=== PATIENT | female | born 1950 | race Caucasian/White ===

== ENCOUNTER → 2017-01-22 | Outpatient (CLI) | payer BC ==
[~2017-01-22] MED LIST: ALPR2TAB5 PO; ASPI-630 PO; BUSP10TA PO; ESTR1PAT10 TD; FLUT16SP2 NS; LOSA1TAB19 PO; OMEG500C PO; OMEP40CA5 PO; SOLI5TAB2 PO; VENL150C6 PO
--- NOTE | 2017-01-22 09:50 | KCIC ---
MRI right foot without contrast dated 01/22/2017. No comparison available. Clinical indication: Pain at base of metatarsals. Evaluate for avascular necrosis. Pain for 2 months. TECHNIQUE: T1 and FSE fat-saturated T2-weighted imaging performed in 3 planes to include the forefoot region. No contrast administered. FINDINGS: There is flattening of the articular surface of the second metatarsal head, particularly along its dorsal margin. There are secondary degenerative changes with small amount of increased T2 and low T1 signal in the subchondral marrow. Prominent marginal osteophyte off the dorsal surface of the second metatarsal head. No joint effusion. There is thinning and surface irregularity of the articular cartilage. Mild edema at the base of the second proximal phalanx. Mild degenerative change of the first MTP joint. Minimal degenerative change of the interphalangeal joints throughout. No additional areas of bone marrow edema There is T2 hyperintense signal within the soft tissues surrounding the second and third MTP joint. There is also some edema and fluid along the margins of the flexor tendons and extensor tendons. No apparent tendon disruption. The soft tissue structures are otherwise unremarkable. The Lisfranc ligament is intact. IMPRESSION: 1. Mild flattening of the second metatarsal head with signal abnormality at the subchondral marrow. Etiology is indeterminate but could be related to prior trauma or prior episodes of AVN. There are moderate secondary degenerative changes. 2. Mild edema within the soft tissue surrounding the second and third MTP joint with fluid along the flexor and extensor tendons. This could be related to reactive edema and/or tenosynovitis. 3. Additional degenerative changes as described above. Electronically signed by: Leonides Burgos MD (01/22/2017 9:46 AM) [id number]
== END | disposition home or self-care (01) ==
LOC: KCIC MRI 08:30
PROVIDERS: ATTEND Podiatrist
DX: M25.571 Pain in right ankle and joints of right foot (principal); R60.0 Localized edema
CPT/HCPCS: 73718

== ENCOUNTER → 2018-05-31 | Outpatient (CLI) | payer MEDICARE, BC ==
--- NOTE | 2018-05-31 18:16 | KCIC ---
Bilateral digital screening mammograms with 3-D tomosynthesis: Reason for examination: Routine screening. Comparison is made to previous studies dated 08/08/2013 and 08/16/2012. Bilateral mammograms in CC and oblique projections were obtained with 2-D imaging and 3-D tomosynthesis imaging on a Siemens Inspiration unit and reviewed on the workstation. Interpretation was made with the benefit of CAD. The skin and nipples show no abnormalities. No abnormal axillary lymph nodes are seen. The breast parenchyma shows scattered fatty and fibroglandular density. (Breast density: Category B.) There are multiple small subcentimeter nodular densities seen bilaterally which may represent small cystic or fibrocystic lesions. Recommend further evaluation with ultrasound. There are no suspicious calcifications or architectural distortion. Impression: Multiple small nodules bilaterally throughout both breasts. These may represent cysts or fibrocystic lesions but recommend further evaluation with ultrasound. BI-RADS Category 0: Incomplete: Need additional imaging evaluation. "Our facility is accredited by the [employer] Mammography [employer]." This patient's information has been entered into a reminder system for the patient to be notified with the results of her examination and a target date for the next mammogram. Electronically signed by: Joanna Cerrato MD (05/31/2018 6:13 PM) [id number]
== END | disposition home or self-care (01) ==
LOC: KCIC MAMMO 15:22
PROVIDERS: ATTEND Family Medicine
DX: Z12.31 Encounter for screening mammogram for malignant neoplasm of breast (principal); N63.10 Unspecified lump in the right breast, unspecified quadrant; N63.20 Unspecified lump in the left breast, unspecified quadrant
CPT/HCPCS: 77063; 77067

== ENCOUNTER → 2018-06-21 | Outpatient (CLI) | payer MEDICARE, BC ==
--- NOTE | 2018-06-21 12:26 | KCIC ---
MR of the right shoulder HISTORY: Right shoulder pain, several falls. TECHNIQUE: Routine multiplanar sequences are obtained. FINDINGS: The acromioclavicular joint is mildly degenerative. Diffuse rotator cuff tendinosis. Broad undersurface tearing of the supraspinatus and infraspinatus tendons, overall about 80-90% deep. There is a small through and through full-thickness component at the lateral supraspinatus tendon measuring less than 1 cm. Partial subscapularis tendon tear. Mild rotator cuff muscle atrophy. Mild subdeltoid bursal fluid. Small joint effusion. Tear of the posterosuperior labrum. Biceps tendon appears intact. Degenerative changes at the glenohumeral joint. No bone destruction or acute fracture. IMPRESSION: 1. Rotator cuff tendinosis. Broad deep partial-thickness undersurface tearing of the supraspinatus and infraspinatus tendon with a small full-thickness component laterally, and partial subscapularis tendon tear. 2. Posterosuperior labral tear. 3. Small joint effusion. Electronically signed by: Leonides Ramos MD (06/21/2018 12:23 PM) [email or web address]
== END | disposition home or self-care (01) ==
LOC: KCIC MRI 10:02
PROVIDERS: ATTEND Orthopaedic Surgery
DX: M75.101 Unspecified rotator cuff tear or rupture of right shoulder, not specified as traumatic (principal); M62.511 Muscle wasting and atrophy, not elsewhere classified, right shoulder; M19.011 Primary osteoarthritis, right shoulder; M25.411 Effusion, right shoulder
CPT/HCPCS: 73221

== ENCOUNTER → 2018-06-25 | Outpatient (CLI) | payer MEDICARE, BC ==
--- NOTE | 2018-06-25 09:13 | KCIC ---
Bilateral breast ultrasound: Reason for examination: Multiple small nodules on screening mammogram. Comparison is made to mammographic exam dated 05/31/2018. Bilateral whole breast ultrasound including evaluation of all 4 quadrants and the retroareolar and axillary regions of both breasts was performed. There are multiple small hypoechoic lesions throughout both breasts measuring up to 7.4 mm in size consistent with complicated cysts and fibrocystic lesions. No grossly suspicious lesions are seen. No abnormal appearing lymph nodes are seen in the axilla. IMPRESSION: Multiple small benign-appearing nodules throughout both breasts consistent with complicated cysts and fibrocystic lesions which are all subcentimeter in size. No grossly suspicious lesion seen. Recommend reevaluation with ultrasound in 3 months to verify stability. BI-RADS Category 3: Probably Benign. "Our facility is accredited by the [employer] Mammography [employer]." This patient's information has been entered into a reminder system for the patient to be notified with the results of her examination and a target date for the next mammogram. Electronically signed by: Joanna Cerrato MD (06/25/2018 9:10 AM) [email or web address]
== END | disposition home or self-care (01) ==
LOC: KCIC US 07:55
PROVIDERS: ATTEND Family Medicine
DX: R92.8 Other abnormal and inconclusive findings on diagnostic imaging of breast (principal)
CPT/HCPCS: 76641

== ENCOUNTER → 2018-07-11 | Outpatient (CLI) | payer MEDICARE, BC ==
--- NOTE | 2018-07-11 14:54 | KCIC ---
MRI Lumbar Spine without contrast History: Left sciatica, frequent falls, chronic bilateral hip pain Technique: Multiplanar, multi sequential noncontrast MR imaging was performed of the lumbar spine. Comparison: None Findings: There is some motion degradation. Lumbar vertebral body stature is maintained. There is grade 1 anterior spondylolisthesis L4-5. There is mild degenerative disc disease at L4-5, mild disc desiccation at more superior lumbar levels. There is very mild edema of the bilateral L4 and L5 pedicles extending to the facet articular processes likely reactive/degenerative in etiology. Conus terminates at T12-L1. L2-L3: Spinal canal and neural foramina are adequate. There is mild buckling of the ligamentum flavum and facet hypertrophic change. L3-L4: There is [id number] facet degenerative change and buckling of the ligamentum flavum. There is negligible bulge. Spinal canal and neural foramina are adequate. L4-L5: There is moderate to severe facet degenerative change and buckling of the ligamentum flavum. There is mild partial uncovering of the posterior aspect of the disc due to spondylolisthesis, minimal bulge. There is also synovial cyst in the right lateral recess about 0.6 cm transverse by 0.4 cm AP by 0.6 cm cc. Combination of findings results in fairly severe spinal stenosis, some preserved subarachnoid space. There is lateral recess stenosis bilaterally with contact of the descending L5 nerve roots including on the right by the synovial cyst. There is mild narrowing of the left neural foramen, right neural foramen adequate. L5-S1: There is [id number] facet degenerative change on the right, to lesser degree on the left. Spinal canal and neural foramina are adequate. Impression: 1. There is fairly severe spinal stenosis at L4-5 with limited preserved subarachnoid space, lateral recess stenosis bilaterally with contact of the descending L5 nerve roots in part on the right by small synovial cyst. 2. There is mild grade 1 anterior spondylolisthesis at L4-5 at which there is facet degenerative change change and buckling of the ligamentum flavum. 3. There is minimal narrowing of the left L4-5 neural foramen. 4. There is mild degenerative disc disease at L4-5. Electronically signed by: Mode Bui MD (07/11/2018 2:51 PM) [email or web address]
--- NOTE | 2018-07-11 15:04 | KCIC ---
MRI Cervical Spine Without Contrast History: Cervical retrolisthesis, frequent falls Technique: Multiplanar, multi sequential noncontrast MR imaging was performed of the cervical spine. Comparison: None FINDINGS: There is some motion degradation. There is mild reversal of the lordotic curvature centered near C4-5. Cervical vertebral body stature is maintained. There is grade 1 anterior spondylolisthesis C4-5, C7-T1, T1-T2. There is very minimal posterior subluxation C5 relative to C6. There is fairly advanced degenerative disc disease C5-6 and C6-7 and to lesser degree at C4-C5, minimally at C7-T1. There is trace C6-7 endplate edema likely reactive/degenerative in etiology. There is very mild dextroscoliosis of the cervical spine. C2-C3: Spinal canal and neural foramina are adequate. C3-C4: There is moderate left facet hypertrophic change, to lesser degree on the right. There is mild posterior narrowing of the left neural foramen. Spinal canal and right neural foramen are adequate. C4-C5: There is severe left facet hypertrophic change, synovial cysts along the posterior margin. There is minimal disc osteophyte complex and bulge. Central canal is narrowed to about 8 to 9 mm. Right neural foramen is adequate. There is left uncovertebral degenerative change. There is fairly severe narrowing of the left neural foramen. C5-C6: There is disc osteophyte complex and superimposed bulge/broad protrusion with effacement of ventral subarachnoid space and contact of the ventral cord, narrowing of the central canal about 7 to 8 mm. There is bilateral facet hypertrophic change, also left greater than right uncovertebral degenerative change. There is fairly severe narrowing of the left neural foramen, moderate to severe narrowing greater proximally on the right. C6-C7: There is broad posterior protrusion about 4 to 5 mm AP greatest centrally with indentation upon the ventral thecal sac and narrowing of the central canal to about 8 mm. There is degree of facet degenerative change bilaterally, also minimal uncovertebral degenerative change. Neural foramina are not significantly narrowed. C7-T1: There is facet degenerative change bilaterally. There is very shallow posterior central protrusion about 1 to 2 mm AP. Central canal is adequate about 11 mm. Neural foramina are overall adequate. T2-3: This level was not included on the axial images. There is a shallow posterior central protrusion about 2 mm AP without central spinal stenosis. Facet degenerative change at this level contributes to mild posterior narrowing of the right neural foramen. Impression: 1. There is spinal stenosis about 7 mm at C5-C6 with contact of the ventral cord, lesser degree of mild spinal stenosis as described C4-5 and C6-7. 2. There is more advanced degenerative disc disease C5-6 and C6-7 and to lesser degree C4-5 with spondylosis at the same levels. There is multilevel mild abnormal alignment as stated, multilevel facet degenerative change. 3. There is fairly severe neural foramina compromise on the left at C4-5 and left greater than right at C5-6 due to facet and uncovertebral degenerative change. Electronically signed by: Mode Bui MD (07/11/2018 3:01 PM) [email or web address]
== END | disposition home or self-care (01) ==
LOC: KCIC MRI 13:26
PROVIDERS: ATTEND Orthopaedic Surgery
DX: M51.36 Other intervertebral disc degeneration, lumbar region (principal); M50.323 Other cervical disc degeneration at C6-C7 level; M50.223 Other cervical disc displacement at C6-C7 level; M48.061 Spinal stenosis, lumbar region without neurogenic claudication; M48.02 Spinal stenosis, cervical region; M43.13 Spondylolisthesis, cervicothoracic region; M43.16 Spondylolisthesis, lumbar region; M89.38 Hypertrophy of bone, other site; M71.38 Other bursal cyst, other site; M43.8X2 Other specified deforming dorsopathies, cervical region; M54.32 Sciatica, left side
CPT/HCPCS: 72141; 72148